=== PATIENT | female | born 1960 | race Caucasian/White ===

== ENCOUNTER 2017-07-25 15:59 | Emergency (ER) | payer OTHER ==
[2017-07-25] MEDS ORDERED: Pepcid 20 MG VIAL IV ONE ×2 (17:24→17:43)
--- NOTE | 2017-07-25 17:29 | ERPHSYRPT ---
- History of Present Illness Time Seen by Provider: 07/25/17 17:18 Historian: patient Patient Subjective Stated Complaint: PT STATES SHE BEGAN HAVING DIARRHEA RAMON WITH HER SON THAT LIVES WITH HER. PT STATES SHE BECAME CONCERNED WHEN SHE NOTICED BRIGHT RED BLOOD IN STOOLS. STATES SHE HAS CRAMPING. Triage Nursing Assessment: PT PINK, WARM,,DRY. MUCUS MEMBRANES MOIST. ABDOMEN SOFT NONTENDER. BOWEL SOUNDS PRESENT IN ALL 4 QUADS. Physician History: CC: diarrhea Hx: 56 y/o patient of Dr Valerie Morley. She began to have diarrhea last night at [place]. At around 3AM had some BRBPR which has continued today. Some cramping abd pain. Was recently treated with keflex. No hx of GI bleed, but had prior polyps on colonoscopy. Son also had diarrhea last night- they both work at [employer]. No fever or chills. Some malaise. ILL: DM, HTN Surg: Jaun, C/S Social: Occ smoker Allergies/Adverse Reactions: No Known Drug Allergies Allergy (Unverified 07/25/17 16:27) Home Medications: Fenofibrate,Micronized 145 mg* [Tricor 145 MG] 145 mg PO DAILY 04/12/16 [ History] Levocetirizine Dihydrochloride 5 mg PO DAILY 04/12/16 [History] Lisinopril 10 mg [Zestril 10 MG] 20 mg PO DAILY 04/12/16 [History] Lovastatin 20 mg PO DAILY 04/12/16 [History] Metformin HCl 500 mg [Glucophage 500 MG] 500 mg PO DAILY 04/12/16 [History ] Montelukast Sodium 10 mg PO DAILY 04/12/16 [History] Tapentadol HCl [Nucynta] 75 mg PO TID 04/12/16 [History] Albuterol Sulfate [Proair Hfa] 8.5 gm IH DAILY PRN PRN 07/25/17 [History] Escitalopram Oxalate [Lexapro] 10 mg PO BID 07/25/17 [History] Hx Tetanus, Diphtheria Vaccination/Date Given: Yes (UP TO DATE) Hx Influenza Vaccination/Date Given: Yes Hx Pneumococcal Vaccination/Date Given: No Immunizations Up to Date: Yes - Review of Systems Constitutional: Malaise, No Fever, No Chills Eyes: No Symptoms Ears, Nose, & Throat: No Symptoms Respiratory: No Cough Cardiac: No Chest Pain Abdominal/Gastrointestinal: Abdominal Pain (cramping), Vomiting (X1), Diarrhea, Hematochezia Genitourinary Symptoms: No Dysuria Musculoskeletal: No Symptoms Skin: No Symptoms Neurological: No Symptoms All Other Systems: Reviewed and Negative - Past Medical History Pertinent Past Medical History: Yes Cardiac History: High Cholesterol, Hypertension Respiratory History: Asthma Endocrine Medical History: Diabetes Type II Psycho-Social History: Depression Other Medical History: "heart issues currently getting testing for" - Past Surgical History Past Surgical History: Yes Female Surgical History: Hysterectomy, Section Other Surgical History: x3 - Social History Smoking Status: Current some day smoker How long have you smoked: 1 Exposure to second hand smoke: No Drug Use: none Patient Lives Alone: No - Nursing Vital Signs Nursing Vital Signs: Initial Vital Signs Temperature 99.8 F 07/25/17 16:21 Pulse Rate 88 07/25/17 16:21 Respiratory Rate 20 07/25/17 16:21 Blood Pressure 138/89 07/25/17 16:21 O2 Sat by Pulse Oximetry 97 07/25/17 16:21 Pain Scale Pain Intensity 0 - Physical Exam General Appearance: alert, other (pleasant lady) Eye Exam: PERRL/EOMI Ears, Nose, Throat Exam: normal ENT inspection, moist mucous membranes Neck Exam: normal inspection, non-tender, supple Respiratory Exam: normal breath sounds Cardiovascular Exam: regular rate/rhythm Gastrointestinal/Abdomen Exam: soft, tenderness (mild lower discomfort, no mass) Rectal Exam: normal exam, normal rectal tone, blood, No mass Back Exam: normal inspection, normal range of motion Extremity Exam: normal inspection, normal range of motion Neurologic Exam: alert, oriented x 3, cooperative, sensation nml, No motor deficits Skin Exam: warm, dry, No rash SpO2 Interpretation: normal SpO2: 97 Oxygen Delivery: Room Air - Course Nursing assessment & vital signs reviewed: Yes - CT Exams abd/pelvis CT Interpretation: Tele-radiologist Report (bowel wall thickening involving the distal transverse colon, splenic flexure, and descrnding colon. Suggests inflammatory or infectious colitis. ) Ordered Tests: Active Orders 24 hr Category Date Time Status IV Insertion STAT Care 07/25/17 17:24 Active NPO (ED) STAT Care 07/25/17 17:24 Active ABDOMEN AND PELVIS W CONTRAST [CT] Stat Exams 07/25/17 17:24 Taken CBC W DIFF Stat Lab 07/25/17 17:30 Completed CMP Stat Lab 07/25/17 17:30 Completed Occult Blood,Stool Other Stat Lab 07/25/17 17:45 Completed PROTIME WITH INR Stat Lab 07/25/17 17:30 Completed PTT Stat Lab 07/25/17 17:30 Completed Medication Summary Generic Name Dose Route Start Last Admin Trade Name Freq PRN Reason Stop Dose Admin Sodium Chloride 1,000 mls @ 100 mls/hr 07/25/17 17:30 07/25/17 17:44 Sodium Chloride 0.9% 1000 Ml IV 08/24/17 17:29 100 mls/hr .Q10H YOLANDA Administration Discontinued Medications Generic Name Dose Route Start Last Admin Trade Name Freq PRN Reason Stop Dose Admin Famotidine 20 mg 07/25/17 17:24 07/25/17 17:44 Pepcid 20 Mg Vial IV 07/25/17 17:25 20 mg STAT ONE Administration Famotidine Confirm 07/25/17 17:43 Pepcid 20 Mg Vial Administered 07/25/17 17:44 Dose 20 mg IV .[employer] ONE Lab/Rad Data: Laboratory Result Diagrams 07/25/17 17:30 07/25/17 17:30 Laboratory Results 07/25/17 07/25/17 07/25/17 Range/Units 17:45 17:30 17:30 WBC (4.0-10.5) K/mm3 RBC (4.1-5.4) M/mm3 Hgb (12.0-16.0) gm/dl Hct (35-47) % MCV (78-100) fl MCH (26-32) pg MCHC (32-36) g/dl RDW (11.5-14.0) % Plt Count (150-450) K/mm3 MPV (6-9.5) fl Gran % (36.0-66.0) % Lymphocytes % (24.0-44.0) % Monocytes % (0.0-12.0) % Eosinophils % (0.00-5.0) % Basophils % (0.0-0.4) % Basophils # (0-0.4) INR 1.02 (0.8-3.0) APTT 29.8 (25.3-37.0) SECONDS Sodium (136-145) mEq/L Potassium (3.5-5.1) mEq/L Chloride (98-107) mEq/L Carbon Dioxide (21-32) mEq/L Anion Gap (5-15) MEQ/L BUN (9-20) mg/dL Creatinine (0.55-1.30) mg/dl Estimated GFR ML/MIN Glucose (70-110) MG/DL Calcium (8.5-10.1) mg/dL Total Bilirubin (0.2-1.0) mg/dL AST (15-37) U/L ALT (12-78) U/L Alkaline Phosphatase (46-116) U/L Serum Total Protein (6.4-8.2) gm/dL Albumin (3.4-5.0) g/dL Stool Occult Blood POSITIVE (Negative) ABO Group A Rh Factor POSITIVE Antibody Screen NEGATIVE (NEGATIVE) 07/25/17 07/25/17 Range/Units 17:30 17:30 WBC 14.6 H (4.0-10.5) K/mm3 RBC 5.04 (4.1-5.4) M/mm3 Hgb 13.7 (12.0-16.0) gm/dl Hct 42.1 (35-47) % MCV 83.5 (78-100) fl MCH 27.2 (26-32) pg MCHC 32.5 (32-36) g/dl RDW 14.2 H (11.5-14.0) % Plt Count 278 (150-450) K/mm3 MPV 10.7 H (6-9.5) fl Gran % 75.8 H (36.0-66.0) % Lymphocytes % 18.9 L (24.0-44.0) % Monocytes % 5.0 (0.0-12.0) % Eosinophils % 0.2 (0.00-5.0) % Basophils % 0.1 (0.0-0.4) % Basophils # 0.01 (0-0.4) INR (0.8-3.0) APTT (25.3-37.0) SECONDS Sodium 137 (136-145) mEq/L Potassium 3.4 L (3.5-5.1) mEq/L Chloride 101 (98-107) mEq/L Carbon Dioxide 27.7 (21-32) mEq/L Anion Gap 11.2 (5-15) MEQ/L BUN 13 (9-20) mg/dL Creatinine 0.72 (0.55-1.30) mg/dl Estimated GFR > 60 ML/MIN Glucose 92 (70-110) MG/DL Calcium 9.8 (8.5-10.1) mg/dL Total Bilirubin 0.30 (0.2-1.0) mg/dL AST 17 (15-37) U/L ALT 16 (12-78) U/L Alkaline Phosphatase 61 (46-116) U/L Serum Total Protein 7.6 (6.4-8.2) gm/dL Albumin 4.1 (3.4-5.0) g/dL Stool Occult Blood (Negative) ABO Group Rh Factor Antibody Screen (NEGATIVE) - Progress Progress Note: 07/25/17 17:[address] to evaluate for colitis. 07/25/17 19:48 She feels better. Will treat for colitis. No diarrhea here so will give slip and sample collection kit. Advised follow up Friday Dr Valerie Morley. Counseled pt/family regarding: lab results, diagnosis, need for follow-up, rad results - Departure Time of Disposition: 19:48 Departure Disposition: Home Clinical Impression: Colitis Condition: Stable Critical Care Time: No Referrals: DELIO MORLEY MD [Primary Care Provider] - Instructions: Diarrhea and Traveler's Diarrhea -- Adult Additional Instructions: Rx flagyl. Rx zofran for nausea. Sip fluids. No metformin for 48 hours. Return for problems or concerns. Stool sample if more diarrhea. Follow up Friday with Dr Valerie Morley. Prescriptions: Ondansetron ODT 4 MG [Zofran Odt 4 mg] 1 tab PO Q6H PRN PRN #10 tab.rapdis PRN Reason: Nausea/Vomiting Metronidazole 500 mg [Flagyl 500 MG] 500 mg PO BID #20 tablet
[2017-07-25] MEDS ORDERED: Sodium Chloride 0.9% 1000 ML 1,000 ML IV SCH (17:30)
[2017-07-25] MEDS ORDERED: Sodium Chloride 0.9% 1000 ML 1,000 ML ONE (17:43)
[2017-07-25 17:59] LABS: BASOPHIL % 0.1 % (0.0-0.4); Eosinophil % 0.2 % (0.00-5.0); Granulocytes % 75.8 % (36.0-66.0); Lymphocytes % 18.9 % (24.0-44.0); Mean Cell Volume 83.5 fl (78-100); Mean Corpuscular Hemoglobin 27.2 pg (26-32); Mean Platelet Volume 10.7 fl (6-9.5); Platelet Count 278 K/mm3 (150-450); Red Blood Count 5.04 M/mm3 (4.1-5.4); Red Cell Distribution Width 14.2 % (11.5-14.0); White Blood Count 14.6 K/mm3 (4.0-10.5)
[2017-07-25 18:16] LABS: INR 1.02 (0.8-3.0); PROTIME 11.5 SECONDS (9.95-12.35)
[2017-07-25 18:18] LABS: PTT 29.8 SECONDS (25.3-37.0)
[2017-07-25 18:27] LABS: ALBUMIN 4.1 g/dL (3.4-5.0); ALKALINE PHOSPHATASE 61 U/L (46-116); ANION GAP 11.2 MEQ/L (5-15); BLOOD UREA NITROGEN 13 mg/dL (9-20); CHLORIDE 101 mEq/L (98-107); Carbon Dioxide 27.7 mEq/L (21-32); Glucose 92 MG/DL (70-110); Potassium 3.4 mEq/L (3.5-5.1); SGOT/AST 17 U/L (15-37); SGPT/ALT 16 U/L (12-78); SODIUM 137 mEq/L (136-145); Total Protein 7.6 gm/dL (6.4-8.2)
[2017-07-25 20:07] VITALS: BP 161/103; PULSE 75; O2SAT 100
--- NOTE | 2017-07-25 23:04 | XRAY ---
Indication: Bright red blood in stool. Diarrhea. Multiple contiguous axial images obtained through the abdomen and pelvis using 80 cc Isovue 370 contrast only. Comparison: None Lung bases are clear. Heart is not enlarged. Noncontrasted stomach and bowel loops appear nonobstructed. Normal appendix. There is moderate circumferential colonic wall thickening involving the splenic flexure, descending, and lesser degree sigmoid favoring colitis. No free fluid/air. Previous hysterectomy. Remaining liver, gallbladder, pancreas, spleen, adrenal glands, kidneys, ureters, and bladder appear unremarkable. Minimal aortoiliac calcifications. No AAA or pathologic retroperitoneal lymphadenopathy. Osseous structures intact with lumbosacral junction degenerative disc disease. Impression: CT features favoring colitis. No complications. Comment: Preliminary interpretation was made by [facility]. No discrepancy. CTDI 10.72
== END 2017-07-25 20:08 | disposition home or self-care (01) ==
LOC: ED 15:59
DX: K52.9 Noninfective gastroenteritis and colitis, unspecified (principal); R19.7 Diarrhea, unspecified; R10.9 Unspecified abdominal pain; E11.9 Type 2 diabetes mellitus without complications; I10 Essential (primary) hypertension; Z90.710 Acquired absence of both cervix and uterus; Z79.84 Long term (current) use of oral hypoglycemic drugs; Z79.899 Other long term (current) drug therapy; R11.10 Vomiting, unspecified; K92.1 Melena
CPT/HCPCS: 36000; 36415; 74177; 80053; 82272; 85025; 85610; 85730; 86850; 86900; 86901; 96360; 96361; 96374; 99284

== ENCOUNTER 2019-07-14 14:21 | Day surgery (SDC) | payer OTHER ==
[2019-07-14] MEDS ORDERED: Xylocaine 1% Vial 30 ML PF IJ ONE (14:22)
[2019-07-14] MEDS ORDERED: Depo-Medrol 40 MG/ML IM ONE (14:22)
[2019-07-14] MEDS ORDERED: Xylocaine-Mpf 2% 5 Ml Vial IJ ONE (14:22)
--- NOTE | 2019-07-14 16:35 | XRAY ---
Indication: Bilateral L4-S1 MBB. Intraoperative fluoroscopy was provided for 10 seconds. Single digital spot image submitted for interpretation demonstrates posterior needle tips projecting over the expected course of the left and right L4-S1 nerve roots. Correlate with intraoperative findings/report.
--- NOTE | 2019-07-14 16:45 | XRAY ---
10 seconds fluoroscopy time in surgery for bilateral L4-S1 MBB.
== END 2019-07-14 16:00 | disposition home or self-care (01) ==
LOC: SDC-PAIN 14:21
PROVIDERS: ATTEND Psychiatry & Neurology Pain Medicine
DX: M47.816 Spondylosis without myelopathy or radiculopathy, lumbar region (principal); I10 Essential (primary) hypertension; E11.9 Type 2 diabetes mellitus without complications; E78.5 Hyperlipidemia, unspecified; Z79.899 Other long term (current) drug therapy
CPT/HCPCS: 64493; 64494; 72020; 77002; 82962; J1030; J2001

== ENCOUNTER 2024-11-01 08:49 | Day surgery (SDC) | payer BC ==
[2024-11-01 09:20] VITALS: RESP 18
[2024-11-01 10:12] LABS: Calcium 9.6 mg/dL (8.4-10.2); Creatinine 1 0.65 mg/dL (0.52-1.04); EST GLOMERULAR FILTRATION RATE 98.3 ML/MIN; Potassium 3.9 mmol/L (3.5-5.1)
--- NOTE | 2024-11-01 10:29 | HP ---
HISTORY OF PRESENT ILLNESS: History of polyps a few years ago, needs followup screening colonoscopy. PAST MEDICAL HISTORY: Hypertension, headaches, history of constipation, type 2 diabetes, hyperlipidemia. HOME MEDICATIONS: Lisinopril, simvastatin, metformin, Ozempic, Ajovy, Linzess, Belbuca. ALLERGIES: No known drug allergies. PAST SURGICAL HISTORY: Hysterectomy and x3. SOCIAL HISTORY: History of some smoking. No alcohol abuse. FAMILY HISTORY: Diabetes. She is not certain if her father had colon resection for precancerous tumors. She is not sure about that. Father with colon resection, not sure if it was cancer or not. REVIEW OF SYSTEMS: Twelve systems reviewed. No chest pain or palpitations. Other systems negative or noncontributory as above and per preadmission questionnaire. PHYSICAL EXAMINATION: GENERAL: Height 5 feet 2 inches. Weight 139 pounds. No acute distress. HEENT: Sclerae nonicteric. Extraocular movements intact. NECK: No JVD. CHEST: Clear. Equal excursion, nonlabored breathing. CARDIOVASCULAR: Regular rate and rhythm. ABDOMEN: Soft. SKIN: Dry. EXTREMITIES: No cyanosis or edema. NEUROLOGIC: Alert and oriented. Moving extremities symmetrically. PSYCHIATRIC: Appropriate mood and affect. RECTAL: Deferred until time of endoscopy exam.
[2024-11-01] MEDS ORDERED: DIPRIVAN 200 MG/20 ML IV ONE ×2 (11:17→11:29)
[2024-11-01] MEDS ORDERED: Xylocaine-Mpf 2% 5 Ml Vial ONE (11:17)
[2024-11-01 12:26] VITALS: BP 109/70; O2SAT 100
[2024-11-01 12:32] VITALS: PULSE 69; TEMP 97.8
--- NOTE | 2024-11-02 11:06 | OP ---
SURGERY DATE/TIME: 11/01/2024 [id number] PREOPERATIVE DIAGNOSIS: History of polyps, need for followup screening colonoscopy. POSTOPERATIVE DIAGNOSES: 1) Multiple polyps. 2) Good bowel prep. 3) ASA class 3. 4) Withdrawal time at least 9 minutes. PROCEDURES: 1) Colonoscopy to cecum. 2) Hot snare polypectomy of a 8 to 9 mm polyp sigmoid colon removed with hot snare polypectomy. 3) Hot snare polypectomy of a 3 mm ascending colon polyp. 4) Hot biopsy polypectomy of a 2 mm polyp transverse colon x4, rectum x4, and ascending colon x1. SURGEON: Timothy Lazo MD. ANESTHESIA: MAC. ESTIMATED BLOOD LOSS: Minimal. INDICATIONS: Consent obtained. DESCRIPTION OF PROCEDURE AND FINDINGS: The patient was taken to the endoscopy room. MAC anesthesia was induced. After official time-out and no disagreement with planned procedure, digital rectal exam did not reveal any rectal masses. Videocolonoscope inserted and passed up through a tortuous sigmoid, descending, transverse, and ascending colon, around to the cecum. Appendiceal orifice and abdominal wall visualized, photo documented. Prep overall was good. There was a little bit of semisolid stool in the cecum but overall good prep. Scope was carefully withdrawn. On the way in, an 8 or 9 mm polyp in the sigmoid colon removed with hot snare polypectomy. It was completely removed. Retrieval pieces were a couple of pieces. There was a 3 to 3.5 mm polyp in the ascending colon that was removed with hot snare polypectomy. Another smaller 2.5 to 3 mm polyp removed with hot biopsy forceps in the ascending colon. Four smaller early polyps or hyperplastic lesions in the transverse colon were removed with hot biopsy forceps. Four small early polyps or hyperplastic lesions in the rectum were removed with hot biopsy forceps. Good hemostasis noted. The patient tolerated the procedure well. There was no immediate complication. The patient tolerated the procedure well. There was no family available to discuss findings with in the waiting area.
== END 2024-11-01 12:38 | disposition home or self-care (01) ==
LOC: SDC 08:49
PROVIDERS: ATTEND Surgery
DX: Z12.11 Encounter for screening for malignant neoplasm of colon (principal); Z09 Encounter for follow-up examination after completed treatment for conditions other than malignant neoplasm; Z86.0100 Personal history of colon polyps, unspecified; I10 Essential (primary) hypertension; E11.9 Type 2 diabetes mellitus without complications; D12.7 Benign neoplasm of rectosigmoid junction; D12.2 Benign neoplasm of ascending colon; D12.5 Benign neoplasm of sigmoid colon; D12.3 Benign neoplasm of transverse colon
CPT/HCPCS: 36415; 80048; 93005; J2704